=== PATIENT | female | born 1975 | race American Indian/Alaskan Native ===

== ENCOUNTER 2021-10-22 01:38 | Emergency (ER) | payer MEDICAID ==
[2021-10-22 03:33] LABS: Basophils % (Auto) 0.8 % (0.0-1.8); Eosinophils % (Auto) 0.5 % (0.0-4.3); Hematocrit 39.3 % (30.3-42.9); Hemoglobin 12.5 gm/dl (10.1-14.3); Lymphocytes % (Auto) 17.6 % (13.4-35.0); Mean Corpuscular HGB Conc 32 % (30-34); Mean Corpuscular Volume 89 fl (79-97); Monocytes # (Auto) 0.5 K/mm3 (0.0-0.8); Monocytes % (Auto) 8.7 % (0.0-7.3); Platelet Count 322 K/mm3 (140-440); Red Blood Count 4.44 M/mm3 (3.65-5.03)
[2021-10-22 03:47] LABS: BUN/Creatinine Ratio 26; Blood Urea Nitrogen 23 mg/dL (7-17); Calcium 9.1 mg/dL (8.4-10.2); Hemolysis Index 15
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
[2021-10-22] MEDS: QUEtiapine 25 MG TAB PO SCH ×2 (11:14→22:00)
[2021-10-22] MEDS: DIVALPROEX DR 125 MG TAB PO SCH ×2 (11:14→22:00)
--- NOTE | 2021-10-22 11:52 | Event Note ---
Date: 10/22/21 S: Refused meds O: Vital Signs - 8 hr 10/22/21 10/22/21 08:29 11:22 Temperature 97.8 F Pulse Rate 97 H Respiratory 18 Rate Blood Pressure 108/64 [Right] O2 Sat by Pulse 100 100 Oximetry A: Bipolar disorder PE: 1013/awaiting inpatient psych
[2021-10-22 16:46] LABS: Bilirubin,Urine NEG (Negative); Blood,Urine NEG (Negative); Color,Urine Yellow (Yellow); Mucus,Urine FEW /HPF; Protein,Urine <15 mg/dL mg/dL (Negative); Urobilinogen,Urine < 2.0 mg/dL (<2.0)
[2021-10-22 16:54] LABS: Amphetamine Screen,Urine Negative; Benzodiazepines Screen,Urine Negative; Cannabinoid Screen,Urine Negative; Cocaine Screen,Urine Negative; Methadone Screen,Urine Negative; Opiate Screen,Urine Negative
[2021-10-22 17:29] LABS: RBC,Urine < 1.0 /HPF (0.0-6.0); WBC,Urine < 1.0 /HPF (0.0-6.0)
[2021-10-22] MEDS ORDERED: QUEtiapine 25 MG TAB PO SCH (22:00)
[2021-10-23] MEDS: QUEtiapine 25 MG TAB PO SCH (09:35)
[2021-10-23] MEDS: DIVALPROEX DR 125 MG TAB PO SCH (09:35)
--- NOTE | 2021-10-23 10:04 | Progress Note ---
Subjective - Reason for Consult Consult date: 10/23/21 Reason for consult: mental health evaluation - Chief Complaint Chief complaint: The patient was seen this morning. She is continues to be disorganized. Per nurse, patient is refusing medications. REVIEW OF SYSTEMS Constitutional: Negative for weight loss ENT: Negative for stridor Respiratory: Negative for cough or hemoptysis All other systems reviewed and are negative MENTAL STATUS EXAMINATION General Appearance and Behavior: Age appropriate, good hygiene, wearing appropriate clothes, calm, cooperative Cooperation: Participating/engaged Psychomotor Behavior: Normal Mood: Depressed Affect and affective range: congruent with mood Thought Process: Racing thoughts Thought Content: Reality oriented Speech: Hypervebal, pressured Suicidal Ideation: Denies Homicidal Ideation: Denies Hallucinations: Denies Delusions: None elicited Impulse Control: Unimpaired Insight and Judgment: Limited insight and judgment, Memory: Normal, Attention: Normal Orientation: Alert, oriented Assessment and Plan (1)Bipolar disorder Current Visit: Yes Status: Acute 1013 Treatment Plan Start Abilify 10mg po daily Start Trazodone 50mg po QHS Continue Depakote Dr 250mg po BID The patient needs to follow up with his outpatient psychiatrist and therapist. Continue home meds Disposition: Recommend psychiatric inpatient admission at this time. Will follow. Thanks Case staffed with Dr. Pérez Mental Status Exam - Vital signs Last Vital Signs Temp 98.4 F 10/23/21 09:35 Pulse 66 10/23/21 09:35 Resp 18 10/23/21 09:35 BP 116/70 10/23/21 09:35 Pulse Ox 100 10/23/21 09:35
[2021-10-23] MEDS ORDERED: ARIPiprazole 5 MG TAB PO ONE (10:17)
[2021-10-23] MEDS: ARIPiprazole 10 MG TAB PO SCH (10:35)
[2021-10-23] MEDS: DIVALPROEX DR 250 MG TAB PO SCH ×2 (10:35→22:00)
[2021-10-23] MEDS ORDERED: IBUPROFEN 800 MG TAB PO PRN (12:21)
--- NOTE | 2021-10-23 12:22 | Event Note ---
Date: 10/23/21 S: No events reported overnight O: Vital Signs - 8 hr 10/23/21 10/23/21 08:03 09:35 Temperature 98.4 F Pulse Rate 66 Respiratory 18 Rate Blood Pressure 116/70 [Right] O2 Sat by Pulse 100 100 Oximetry A: Bipolar disorder P: 1013/awaiting inpatient psych
[2021-10-23] MEDS ORDERED: traZODone 50 MG TAB PO SCH (22:00)
--- NOTE | 2021-10-24 08:54 | Progress Note ---
Subjective - Reason for Consult Consult date: 10/24/21 Reason for consult: Mental health evaluation - Chief Complaint Chief complaint: The patient was seen this morning. The patient is calm. She reports doing well. She denies any current suicidal/homicidal ideation and denies hallucinations. REVIEW OF SYSTEMS Constitutional: Negative for weight loss ENT: Negative for stridor Respiratory: Negative for cough or hemoptysis All other systems reviewed and are negative MENTAL STATUS EXAMINATION General Appearance and Behavior: Age appropriate, good hygiene, wearing appropriate clothes, calm, cooperative Cooperation: Participating/engaged Psychomotor Behavior: Normal Mood: Ok Affect and affective range: congruent with mood Thought Process: Goal oriented Thought Content: Reality oriented Speech: Normal Suicidal Ideation: Denies Homicidal Ideation: Denies Hallucinations: Denies Delusions: None elicited Impulse Control: Unimpaired Insight and Judgment: Limited insight and judgment, Memory: Normal, Attention: Normal Orientation: Alert, oriented Assessment and Plan (1)Bipolar disorder Current Visit: Yes Status: Acute [id number] Treatment Plan Continue Abilify 10mg po daily Continue Trazodone 50mg po QHS Continue Depakote Dr 250mg po BID The patient needs to follow up with his outpatient psychiatrist and therapist. Continue home meds Disposition: Do not recommend psychiatric inpatient admission at this time. [facility] will provide patient with outpatient psychiatric resources. Will sign off. Thanks Case staffed with Dr. Pérez Mental Status Exam - Vital signs Last Vital Signs Temp 98.4 F 10/23/21 09:35 Pulse 66 10/23/21 09:35 Resp 18 10/23/21 09:35 BP 116/70 10/23/21 09:35 Pulse Ox 100 10/23/21 09:35
[2021-10-24 10:11] VITALS: BP 128/78
[2021-10-24] MEDS: DIVALPROEX DR 250 MG TAB PO SCH (11:03)
[2021-10-24] MEDS: ARIPiprazole 10 MG TAB PO SCH (11:03)
== END 2021-10-24 13:34 | disposition home or self-care (01) ==
LOC: ED 01:38
DX: Z13.30 Encounter for screening examination for mental health and behavioral disorders, unspecified (principal); F31.9 Bipolar disorder, unspecified; J45.909 Unspecified asthma, uncomplicated; Z20.822 Contact with and (suspected) exposure to COVID-19; Z79.899 Other long term (current) drug therapy; F41.9 Anxiety disorder, unspecified
CPT/HCPCS: 36415; 80048; 80307; 81001; 84703; 85025; 99284; U0003; 80320; G0480